=== PATIENT | male | born 1965 | race Caucasian/White ===

== ENCOUNTER 2024-03-07 07:42 | Day surgery (SDC) | payer BC ==
--- NOTE | 2024-03-05 14:25 | RAD REPORT ---
EXAM: Chest Pa And Lat (2 Views) HISTORY: 58 years Male Pre-op pending heart catheterization COMPARISON: 01/29/2009 FINDINGS: LUNGS/PLEURA: The lungs are clear. No pleural effusions or pneumothorax. No pulmonary edema. MEDIASTINUM: The mediastinal silhouette is within normal limits CARDIAC: The cardiac silhouette is within normal limits. UPPER ABDOMEN: No significant abnormality. BONES: No acute abnormality. LINES/TUBES/OTHER: N/A IMPRESSION: No evidence of acute cardiopulmonary disease.
[2024-03-05 14:59] LABS: PTT, Activated Partial Thromb 29.8 SECONDS (24.3-36.9); Protime INR 1.05
--- NOTE | 2024-03-06 12:30 | EKG ---
Test Date: 2024-03-05 Test Time: 15:02:10 Liquefaction Supervisor: ALEX MEASUREMENT RESULTS: Intervals: Rate: 81 NC: 254 QRSD: 96 QT: 366 QTc: 425 [place]: P: 57 NC: 254 QRS: -37 T: 36 INTERPRETIVE STATEMENTS: Sinus rhythm with 1st degree AV block Left axis deviation Inferior infarct, age undetermined Abnormal ECG Compared to ECG 11/29/2023 08:06:25 No significant changes Electronically Signed On 03-06-24 12:28:59 HOMEWORKER by Jagdish Hyde
[2024-03-07] MEDS ORDERED: MIDAZOLAM HCL 2 MG/2 ML INJ ONE (08:08)
[2024-03-07] MEDS ORDERED: LIDOCAINE 1% 20 ML MDV ONE (08:08)
[2024-03-07] MEDS ORDERED: HEPARIN 10,000 UNIT/10 ML VIAL IV ONE (08:08)
[2024-03-07] MEDS ORDERED: HEPA 1000U/500MLS 2,000 UNIT/1,000 ML BAG IV ONE (08:08)
[2024-03-07] MEDS ORDERED: ASPIRIN 325 MG TAB ONE (08:09)
[2024-03-07] MEDS ORDERED: CLOPIDOGREL 75 MG TABLET ONE (08:09)
[2024-03-07] MEDS ORDERED: ATROPINE SULF 1 MG/10 ML SYR IV ONE (08:09)
[2024-03-07] MEDS ORDERED: HEPARIN 5000 UNIT/ML 1 ML VIAL ONE (08:09)
[2024-03-07] MEDS ORDERED: TICAGRELOR 90 MG TABLET PO ONE (08:09)
[2024-03-07] MEDS ORDERED: FENTANYL CITR 100 MCG/2 ML ONE (08:09)
[2024-03-07] MEDS: NA CHLORIDE 0.9% 500 ML ONE (09:22)
[2024-03-07 09:55] VITALS: TEMP 97.6
[2024-03-07 09:57] VITALS: BP 135/67; O2SAT 96
--- NOTE | 2024-03-09 01:01 | OP ---
Date of Procedure: 03/07/2024 Surgeon: Jagdish Hyde Procedure Performed: 1. Left heart catheterization. 2. Selective angiogram. Indication For Procedure: Abnormal stress test. Complications: None. Estimated Blood Loss: Less than 50 cc. Access: Right radial, closed by TR band. Sedation Time: 20 minutes with 1 of Versed and 25 of fentanyl. Description Of Procedure: After risks, benefits, and alternatives were explained to the patient, the patient agreed to proceed with procedure and signed informed consent. The patient was brought back to the powerhouse laborer, prepped and draped in sterile fashion. A time-out was performed. Sedation was admi nistered. Right radial access was obtained using ultrasound-guided micropuncture technique. [place] 4 catheter w as advanced over J-wire to the LV cavity. LVEDP was obtained. Pullback did not show any gradient. Same catheter was used for selective angiogram of the left and right coronary systems. At the end of procedure, catheter was removed over a J-wire. Sheath was removed. TR band was applied. Hemostasi s achieved. The patient was moved back to recovery in stable condition. Findings: 1. Left main normal. 2. LAD: Tortuous with mild luminal irregularities. 3. Left circ: Mild luminal irregularities. 4. RCA: Very tortuous with mid diffuse 20% to 30% disease and then distal 30% to 40% disease and mil d luminal irregularities. 5. LVEDP 15 mmHg. 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 Plan: Will be to continue medical management. ROZINA/SIDNEY Voice ID: [id number] Report ID: [id number]
== END 2024-03-07 11:31 | disposition home or self-care (01) ==
LOC: PRE 07:42 → CCL 11:10
PROVIDERS: ATTEND Internal Medicine Interventional Cardiology
DX: I25.10 Atherosclerotic heart disease of native coronary artery without angina pectoris (principal); I77.1 Stricture of artery; I10 Essential (primary) hypertension; E11.9 Type 2 diabetes mellitus without complications; E78.5 Hyperlipidemia, unspecified; Z79.85 Long-term (current) use of injectable non-insulin antidiabetic drugs; Z79.899 Other long term (current) drug therapy; Z91.02 Food additives allergy status; Z82.49 Family history of ischemic heart disease and other diseases of the circulatory system
CPT/HCPCS: 93005; 36415; 85610; 82947; 85730; 71046; 93458; 76937; C1893; Q9966; J1644; J2003; J2250; J3010; J7040; 99152; 99153; J0461